=== PATIENT | female | born 2000 | race Caucasian/White ===

== ENCOUNTER 2018-04-14 13:51 | Emergency (ER) | payer OTHER ==
[2018-04-14 14:14] VITALS: BP 117/61
--- NOTE | 2018-04-14 14:41 | EDPHY ---
H & P Time Seen by Provider: 04/14/18 14:21 HPI/ROS: CHIEF COMPLAINT: Sore throat x2 days HISTORY OF PRESENT ILLNESS: 17-year-old immunocompetent female complaining of 2 days of sore throat, adenopathy, tonsillar enlargement. No change in voice. No fever or chills. No headache. No nuchal rigidity. No chest pain. No abdominal pain. No rash. No cough. No abdominal pain. No back or flank pain. REVIEW OF SYSTEMS: 10 systems reviewed and negative with the exception of the elements mentioned in the history of present illness PAST MEDICAL & SURGICAL HISTORY: No pertinent medical or surgical history SOCIAL HISTORY:Nonsmoker PHYSICAL EXAM (Prior to examination, patient consented to physical exam, hands were washed and my usual and customary physical exam procedures followed) 1) GENERAL: Well-developed, well-nourished, alert and oriented. Appears to be in no acute distress. 2) HEAD: Normocephalic, atraumatic 3) HEENT: Pupils equal, round, reactive to light bilaterally. Sclera anicteric. Oropharynx: Bilateral, symmetrically enlarged, exudative tonsils with no pointing of the uvula. No hot potato voice. No trismus no drooling. Submental, submandibular and sublingual spaces are soft no induration. No evidence of Billy's angina. Ears bilaterally with normal tympanic membranes. No evidence of otitis media otitis externa 4) NECK: [Full range of motion, positive submandibular adenopathy 5) LUNGS: Clear auscultation bilaterally, no wheezes, no rhonchi, no retractions. 6) HEART: Regular rate and rhythm, no murmur, no heave, no gallop. 7) ABDOMEN: No guarding, no rebound, no focal tenderness, negative McBurney's, negative Mccollum's, negative Rovsing's, negative peritoneal sign, no splenomegaly or left upper quadrant pain 8) MUSCULOSKELETAL: Moving all extremities, no focal areas of tenderness, no obvious trauma. No peripheral edema or discoloration. 9) BACK: No CVA tenderness, no midline vertebral tenderness, no fluctuance, no step-off, no obvious trauma, no visual or palpable abnormality. 10) SKIN: No rash, no petechiae. 11) Psychiatric: Patient is oriented X 3, there is no agitation. DIFFERENTIAL DIAGNOSIS: In no particular order, my differential diagnosis includes, but is not limited to, strep pharyngitis, viral pharyngitis, peritonsillar abscess, retropharyngeal abscess or plegmon, mononucleosis, meningitis, Lemierre syndrome. Smoking Status: Never smoked Constitutional: Initial Vital Signs Temperature (C) 37 C 04/14/18 14:10 Heart Rate 76 04/14/18 14:10 Respiratory Rate 16 04/14/18 14:10 Blood Pressure 117/61 04/14/18 14:10 O2 Sat (%) 95 04/14/18 14:10 O2 Delivery Mode Room Air Allergies/Adverse Reactions: No Known Allergies Allergy (Unverified 04/14/18 14:14) Home Medications: Medication Instructions Recorded Amoxicillin/Clavulanate Pot 875 mg PO BID #14 tab 04/14/18 [Augmentin 875 mg tab] methylPREDNISolone [Medrol Dose 4 mg PO DAILY #1 ea 04/14/18 Artemio] MDM/Departure - MDM ED Course/Re-evaluation: Re-evaluation with serial exams. High clinical suspicion for strep pharyngitis. Strep testing was performed prior to my evaluating the patient. Based on her negative mono and high clinical suspicion for strep pharyngitis I recommended empiric treatment with Augmentin and Medrol Dosepak. She has been given my usual and customary antibiotic and steroid precautions instructions. Doubt peritonsillar abscess, deep space infection, phlegmon, Lemierre syndrome. Care of patient under supervision of secondary supervising physician Dr Black . Patient feels comfortable being discharged. All questions and concerns addressed by myself. Patient given my usual and customary discharge precautions and instructions regarding their clinical impression. - Depart Disposition: Home, Routine, Self-Care Clinical Impression: Acute streptococcal pharyngitis Condition: Good Instructions: Pharyngitis (ED), Strep Throat (ED) Additional Instructions: Return to the ER immediately if you cannot swallow, have drooling, fevers, neck stiffness, cannot open your jaw, or any other symptoms that concern you. Stand Alone Forms: Work Excuse Prescriptions: Amoxicillin/Clavulanate Pot [Augmentin 875 mg tab] 875 mg PO BID #14 tab methylPREDNISolone [Medrol Dose Artemio] 4 mg PO DAILY #1 ea Referrals: Leeanna Joe MD [Medical Doctor] - 2-3 days, call for appt.
== END 2018-04-14 15:42 | disposition home or self-care (01) ==
DX: J02.0 Streptococcal pharyngitis (principal)

== ENCOUNTER 2018-08-09 04:23 | Emergency (ER) | payer OTHER | END 2018-08-09 08:10 | disposition home or self-care (01) ==